=== PATIENT | male | born 1990 | race Caucasian/White ===

== ENCOUNTER 2016-10-13 16:14 | Emergency (ER) | payer SELFPAY ==
[~2016-10-13] VITALS: Ht 185.4 cm; Wt 97.4 kg
[~2016-10-13 16:14] MED LIST: FLOMAX0.4 MG PO; NORCO 5/3251 TABLET PO; PERCOCET 5/31 TABLET PO; TORADOL10 MG PO; ZOFRAN ODT4 MG PO; ZOFRAN4 MG PO
[2016-10-13 18:38] VITALS: BP 140/72
== END 2016-10-13 18:45 | disposition home or self-care (01) ==
LOC: EME 16:14
DX: E86.0 Dehydration (principal); Z72.0 Tobacco use
CPT/HCPCS: 93005; 99281; 99284; J7030